=== PATIENT | female | born 1955 | race African-American/Black ===

== ENCOUNTER 2018-09-12 20:14 | Emergency (ER) | payer SELFPAY ==
[~2018-09-12] VITALS: Ht 160 cm; Wt 87.9 kg
[2018-09-12 20:20] VITALS: Ht 160 cm; Wt 87.9 kg
== END 2018-09-12 22:49 | disposition left against medical advice (07) ==
LOC: E/R 20:14
DX: Z53.21 Procedure and treatment not carried out due to patient leaving prior to being seen by health care provider (principal)

== ENCOUNTER 2018-09-28 18:37 | Inpatient (IN) | payer MEDICARE, MEDICAID ==
[~2018-09-28] VITALS: Ht 160 cm; Wt 85.1 kg
[2018-09-28] MEDS ORDERED: morphine 4 MG/ML VIAL IV STA (20:33)
[2018-09-28] MEDS ORDERED: SOD CHLORIDE 0.9% 1,000 ML IV STA (20:33)
[2018-09-28] MEDS ORDERED: ONDANSETRON 4 MG INJ IV STA (20:33)
--- NOTE | 2018-09-28 20:39 | ERD ---
ER Documentation Chief Complaint Chief Complaint Pt reports vomiting, AP and back pain HPI This is a 63-year-old female who complains of feeling bad for 7 days. He has diffuse upper and lower back pain with loss of appetite and has not been eating much or drinking much. Denies cough denies dysuria. She also complains of diffuse mild abdominal pain off and on. She has vomited once that was nonbilious and nonbloody. No diarrhea. She has general malaise and weakness. ROS All systems reviewed and are negative except as per history of present illness. Medications Home Meds Reported Medications Meloxicam* (Mobic*) 15 Mg Tablet, 15 MG PO DAILY, #30 TAB 09/28/18 Cyclobenzaprine Hcl* (Cyclobenzaprine Hcl*) 5 Mg Tablet, 5 MG PO DAILY, #60 TAB 09/28/18 Lisinopril* (Lisinopril*) 10 Mg Tablet, 10 MG PO DAILY, #30 TAB 09/28/18 Metformin Hcl* (Metformin Hcl*) 500 Mg Tablet, 500 MG PO WITH BREAKFAST DINNE, #60 TAB 09/28/18 Losartan Potassium* (Losartan Potassium*) 100 Mg Tablet, 100 MG PO DAILY, TAB 09/28/18 Montelukast Sodium* (Montelukast Sodium*) 10 Mg Tablet, 10 MG PO QHS, #30 TAB 09/28/18 Ipratropium-Albuterol (Ipratropium-Albuterol) 0.5-3 Mg/3 Ml Ampul.neb, 3 ML INHALATION Q6, #30 VIAL 09/28/18 Albuterol Sulfate* (Albuterol Sulfate* Neb) 0.083%-3 Ml Neb, 2.5 MG NEB TID PRN for WHEEZING AND SOB, #30 VIAL 09/28/18 Fluticasone Furoate (Arnuity Ellipta) 200 Mcg Blst.w.dev, 200 MCG INHALATION BID , #1 INHALER 09/28/18 Albuterol Sulfate (Proair Respiclick) 90 Mcg Aer.pow.ba, 2 PUFFS INHALATION QID, BOTTLE 09/28/18 Allergies Allergies: Coded Allergies: Penicillins (Unverified Allergy, Unknown, 09/28/18) aspirin (Verified Allergy, Unknown, 09/28/18) iodine (Verified Allergy, Unknown, 09/28/18) Uncoded Allergies: SEAFOOD (Allergy, Unknown, 09/28/18) PMhx/Soc History of Surgery: Yes (Hysterectomy) Anesthesia Reaction: No Hx Neurological Disorder: No Hx Respiratory Disorders: Yes (Asthma) Hx Psychiatric Problems: No Hx Miscellaneous Medical Probl: Yes (DM) Hx Alcohol Use: No Hx Substance Use: No Hx Tobacco Use: No Smoking Status: Never smoker FmHx Family History: No coronary disease Physical Exam Vitals Vital Signs Date Temp Pulse Resp B/P (MAP) Pulse Ox O2 O2 Flow FiO2 Time Delivery Rate 09/28/18 98.5 86 14 146/81 100 Room Air 23:22 (102) 09/28/18 98.5 91 14 142/73 100 Room Air 22:00 (96) 09/28/18 116 25 162/86 100 Room Air 20:32 (111) 09/28/18 99.1 118 20 189/83 100 18:40 (118) Physical Exam Const: Well-developed, well-nourished Head: Atraumatic, normocephalic Eyes: Normal Conjunctiva, PERRLA, EOMI, normal sclera, no nystagmus ENT: Normal External Ears, Nose and Mouth, moist mucus membranes. Neck: Full range of motion. No meningismus, no lymphadenopathy. Resp: Clear to auscultation bilaterally, no wheezing, rhonchi, rales Cardio: Regular rate and rhythm, no murmurs, S1 S2 present Abd: Soft, mild diffuse abdominal tenderness, non distended. Normal bowel sounds, no guarding or rebound, no pulsitile abdominal masses or bruits Skin: No petechiae or rashes, no ecchymosis , no maculopapular rash Back: No midline or flank tenderness Ext: No cyanosis, or edema, FROM x 4, normal inspection, neurovascularly intact x 4 Neur: Awake and alert, STR 5/5 x 4, sensation intact x 4, no focal findings, cerebellum intact Psych: Normal Mood and Affect Result Diagram: 09/28/18205409/28/182120 Results 24 hrs Laboratory Tests Test 09/28/18 20:55 09/28/18 21:21 09/28/18 21:50 White Blood Count 13.0 10^3/ul Red Blood Count 3.71 10^6/ul Hemoglobin 10.8 g/dl Hematocrit 33.2 % Mean Corpuscular Volume 89.5 fl Mean Corpuscular Hemoglobin 29.1 pg Mean Corpuscular 32.5 g/dl Hemoglobin Concent Red Cell Distribution Width 12.5 % Platelet Count 427 10^3/UL Mean Platelet Volume 8.5 fl Immature Granulocytes % 0.500 % Neutrophils % 75.7 % Lymphocytes % 15.4 % Monocytes % 6.2 % Eosinophils % 1.8 % Basophils % 0.4 % Nucleated Red Blood Cells % 0.0 /100WBC Immature Granulocytes # 0.060 10^3/ul Neutrophils # 9.9 10^3/ul Lymphocytes # 2.0 10^3/ul Monocytes # 0.8 10^3/ul Eosinophils # 0.2 10^3/ul Basophils # 0.1 10^3/ul Nucleated Red Blood Cells # 0.0 10^3/ul Sodium Level 133 mmol/L Potassium Level 4.5 mmol/L Chloride Level 98 mmol/L Carbon Dioxide Level 25 mmol/L Anion Gap 10 Blood Urea Nitrogen 15 mg/dl Creatinine 1.22 mg/dl Est Glomerular Filtrat 54 mL/min Rate mL/min Glucose Level 121 mg/dl Calcium Level 9.7 mg/dl Total Bilirubin 0.0 mg/dl Direct Bilirubin 0.00 mg/dl Indirect Bilirubin 0.0 mg/dl Aspartate Amino 17 IU/L Transf (AST/SGOT) Alanine 13 IU/L Aminotransferase (ALT/SGPT) Alkaline Phosphatase 69 IU/L Troponin I < 0.012 ng/ml Total Protein 6.8 g/dl Albumin 3.7 g/dl Globulin 3.10 g/dl Albumin/Globulin Ratio 1.19 Lipase 65 U/L Urine Color YELLOW Urine Clarity CLEAR Urine pH 7.0 Urine Specific [place] 1.009 Urine Ketones TRACE mg/dL Urine Nitrite NEGATIVE mg/dL Urine Bilirubin NEGATIVE mg/dL Urine Urobilinogen NEGATIVE mg/dL Urine Leukocyte Esterase NEGATIVE Rosamaria/ul Urine Hemoglobin NEGATIVE mg/dL Urine Glucose NEGATIVE mg/dL Urine Total Protein NEGATIVE mg/dl Current Medications Medications Dose Sig/Glen Start Time Status Last (Trade) Ordered Route PRN Stop Time Admin Dose Reason Admin Sodium 1,000 ml @ Q1H STAT 09/28/18 DC 09/28/18 Chloride 1,000 mls/hr IV 20:33 20:59 09/28/18 21:32 Morphine 4 mg ONCE STAT 09/28/18 DC 09/28/18 Sulfate IV 20:33 21:00 (morphine) 09/28/18 20:34 Ondansetron 4 mg ONCE STAT 09/28/18 DC 09/28/18 HCl (Zofran IV 20:33 21:00 Inj) 09/28/18 20:34 IV Flush 10 ml STK-MED 09/28/18 DC (NS 10 ml) ONCE .ROUTE 22:23 09/28/18 22:24 Sodium 0 ml @ ud STK-MED 09/28/18 DC Chloride ONCE .ROUTE 22:23 09/28/18 22:24 Iodixanol 100 ml STK-MED 09/28/18 DC (Visipaque ONCE .ROUTE 22:23 Locm) 09/28/18 22:24 Procedures/MDM Ordering MD: ARCENIO LEÓN DO Location: E/R Room/Bed: PROCEDURE: XR Chest. CLINICAL INDICATION: Abdominal pain TECHNIQUE: Frontal chest x-ray was obtained. COMPARISON: None. FINDINGS: The heart is not enlarged. Mediastinum is not widened. No hilar masses seen. Lungs are clear of any infiltrates. There is no effusion or pneumothorax. The osseous structures appear normal. IMPRESSION: No evidence for active cardiopulmonary disease. .Alonso Tang MD, MD Date Time Electronically viewed and signed by .Alonso Tang MD, MD on 09/28/2018 20:51 .A/ CC: ARCENIO LEÓN DO [id number] Ordering MD: ARCENIO LEÓN DO Location: E/R Room/Bed: PROCEDURE: CT ABDOMEN AND PELVIS WITHOUT CONTRAST. CLINICAL INDICATION: Abdominal pain TECHNIQUE: CT scan of the abdomen and pelvis without contrast was performed on a multidetector high-resolution CT scanner. The patient was scanned without intravenous contrast. Coronal and sagittal reformatted images were obtained from the axial source images. Images were reviewed on a high-resolution PACS workstation. The total exam CTDI equals 16.6 mGy and the total exam DLP equals 946.3 mGy-cm. One or more of the following dose reduction techniques were used: Automated exposure control. Adjustment of the mA and/or kV according to patient size. Use of iterative reconstruction technique. DICOM images are available COMPARISON: None FINDINGS: CT abdomen: The lung bases are clear. The heart size is within normal limits. There is no significant pericardial effusion. Hepatic morphology is within normal limits. No gross contour deforming masses. The gallbladder is distended. No evidence of intrahepatic or extrahepatic biliary dilatation. The spleen is unremarkable. There is inflammatory changes adjacent to the head of the pancreas as well as several lymph nodes adjacent to the stomach and head of the pancreas. There is distinct appearance of the head of the pancreas. Both adrenal glands are within normal limits. Both kidneys are in anatomic position. There are bilateral parapelvic renal cysts. No gross renal/ureteric calculi or obstructive uropathy. The visualized GI tract demonstrates distension of the stomach. There is marked abnormal appearance of the pylorus of the stomach and proximal duodenum overlying soft tissue density. There is a focal air-fluid level measuring 3.1 cm in this location, which may represent ulceration or diverticulum. Underlying malignancy is not excluded. The aorta demonstrates atherosclerotic calcifications. No significant retroperitoneal lymphadenopathy. CT pelvis: The bladder is within normal limits. The rectosigmoid colon demonstrates stool and diverticulosis. The uterus is atrophic. No significant free fluid. No significant pelvic lymphadenopathy. The visualized osseous structures demonstrate multilevel degenerative disease of the spine. IMPRESSION: 1. THERE IS A SOFT TISSUE DENSITY OVERLYING THE PYLORUS, PROXIMAL DUODENUM AND HEAD OF THE PANCREAS. THERE IS ALSO MILD DISTENSION OF THE STOMACH, WORRISOME FOR AT LEAST PARTIAL GASTRIC OUTLET OBSTRUCTION. THERE IS ALSO A 3.1 CM FOCAL AIR FLUID LEVEL IN THIS LOCATION, WHICH MAY REPRESENT ULCERATION OR DIVERTICULUM. SEVERAL LYMPH NODES ARE NOTED ADJACENT TO THE DISTAL STOMACH AND HEAD OF THE PANCREAS AND THERE IS INDISTINCT APPEARANCE OF THE PANCREAS. ALTHOUGH FINDINGS MAY REPRESENT UNDERLYING SEVERE INFLAMMATION OF EITHER THE DISTAL STOMACH OR PANCREAS, UNDERLYING MALIGNANCY IS NOT EXCLUDED. RECOMMEND FURTHER WORKUP WITH FOLLOW-UP CT SCAN WITH IV AND IMMEDIATE ORAL GASTROGRAPHIN CONTRAST. EVENTUAL FOLLOW-UP UPPER GI ENDOSCOPY WITH IS ALSO RECOMMENDED. 2. Mildly distended gallbladder. Cannot exclude underlying inflammation. Recommend correlation with ultrasound. No gross radiopaque gallstones. 3. No evidence of bowel obstruction. Stool filled loops of large bowel sugge stive of constipation. The appendix is within normal limits. 4. Bilateral parapelvic renal cysts. No evidence of obstruction or hydronephrosis. 5. No evidence of free fluid or free air. No gross focal fluid collections. RPTAT: AAPP Physician Carmen Date Time Electronically viewed and signed by Harmeet Gallagher Physician on 09/28/2018 23:11 JL/ CC: ARCENIO LEÓN DO [id number] Patient likely has a intra-abdominal mass likely from the pancreatic head. Causing some type of partial gastric outlet obstruction. Will need to get some further studies done and get evaluated with CT scan with oral contrast and EGD We will get ultrasound to assess further now Departure Diagnosis: Primary Impression: Gastric outlet obstruction Additional Impression: Mass of pancreas Condition: Stable ARCENIO LEÓN DO Sep 28, 2018 20:39
[2018-09-28] MEDS ORDERED: ALBU90AE INHALATION (21:31)
[2018-09-28] MEDS ORDERED: FLUT200B INHALATION (21:31)
[2018-09-28] MEDS ORDERED: ALBU2.5V3 NEB (21:32)
[2018-09-28] MEDS ORDERED: MONT10TA24 PO (21:33)
[2018-09-28] MEDS ORDERED: IPRA3AMP29 INHALATION (21:33)
[2018-09-28] MEDS ORDERED: METF500T24 PO (21:34)
[2018-09-28] MEDS ORDERED: LOSA100T15 PO (21:34)
[2018-09-28] MEDS ORDERED: LISI10TA2 PO (21:35)
[2018-09-28] MEDS ORDERED: MELO15TA30 PO (21:36)
[2018-09-28] MEDS ORDERED: CYCL5TAB PO (21:36)
[2018-09-28] MEDS ORDERED: IODIXANOL LOCM 100 ML BTL ONE (22:23)
[2018-09-28] MEDS ORDERED: SOD CHLORIDE 0.9% 0 ML ONE (22:23)
[2018-09-29] MEDS ORDERED: SOD CHLORIDE 0.9% 1,000 ML IV SCH (00:26)
[2018-09-29] MEDS ORDERED: ONDANSETRON 4 MG INJ IV PRN ×2 (00:30→01:00)
[2018-09-29] MEDS ORDERED: ACETAMINOPHEN 325 MG TAB PO PRN ×2 (00:30→01:00)
[2018-09-29] MEDS ORDERED: DOCUSATE SODIUM 100 MG CAP PO PRN (01:00)
[2018-09-29] MEDS ORDERED: HEPARIN 5,000 UNIT/1 ML VIAL SC SCH (01:00)
[2018-09-29] MEDS ORDERED: BISACODYL (EC) 5 MG TAB PO PRN (01:00)
[2018-09-29] MEDS ORDERED: morphine 2 MG INJ IV PRN (01:00)
[2018-09-29] MEDS ORDERED: IOHEXOL 14.3 MG(I)/ML (ADULT) BTL PO ONE (01:00)
[2018-09-29] MEDS ORDERED: NACL 0.9% 3 ML SYG IV SCH (01:00)
--- NOTE | 2018-09-29 01:06 | HP ---
Date/Time of Note Date/Time of Note DATE: 09/29/18 TIME: 01:06 Assessment/Plan VTE Prophylaxis SCD applied (from Nsg): Yes Pharmacological prophylaxis: heparin Lines/Catheters IV Catheter Type (from Nrsg): Saline Lock Assessment/Plan Hospital Course This is a 63-year-old female being admitted to the [facility] floor for: #1 abdominal pain: Concern for gastric outlet obstruction versus underlying mass versus other: CT the abdomen pelvis 1. THERE IS A SOFT TISSUE DENSITY OVERLYING THE PYLORUS, PROXIMAL DUODENUM AND HEAD OF THE PANCREAS. THERE IS ALSO MILD DISTENSION OF THE STOMACH, WORRISOME FOR AT LEAST PARTIAL GASTRIC OUTLET OBSTRUCTION. THERE IS ALSO A 3.1 CM FOCAL AIR FLUID LEVEL IN THIS LOCATION, WHICH MAY REPRESENT ULCERATION OR DIVERTICULUM. SEVERAL LYMPH NODES ARE NOTED ADJACENT TO THE DISTAL STOMACH AND HEAD OF THE PANCREAS AND THERE IS INDISTINCT APPEARANCE OF THE PANCREAS. ALTHOUGH FINDINGS MAY REPRESENT UNDERLYING SEVERE INFLAMMATION OF EITHER THE DISTAL STOMACH OR PANCREAS, UNDERLYING MALIGNANCY IS NOT EXCLUDED. RECOMMEND FURTHER WORKUP WITH FOLLOW-UP CT SCAN WITH IV AND IMMEDIATE ORAL GASTROGRAPHIN CONTRAST. EVENTUAL FOLLOW-UP UPPER GI ENDOSCOPY WITH IS ALSO RECOMMENDED. As patient is allergic to iodine we will be able to pursue a CT contrast imaging study. MRI of the abdomen is an option. We will defer to general surgery Dr. York and GI Dr. man in regards to best modality for imaging. At the current time we will keep the patient n.p.o. IV fluid hydration with normal koko ine. Patient is currently in no pain. Will provide as needed morphine as needed. #2 Leukocytosis: Possibly reactive, patient is afebrile and does not of any source of infection at the current time. Continue to monitor closely 3. Acute versus acute on chronic kidney injury: Patient has a creatinine of 1.2. Likely prerenal given patient's history of vomiting as well as poor appetite. Will hydrate the patient at the current time a normal saline. Will monitor urine function closely. Avoid nephrotoxic agents. #4 hyponatremia: Patient has a mild hyponatremia of 133, she has had poor p.o. intake and decreased fluid intake. Hydrate the patient at the current time monitor electrolytes. #5 diabetes mellitus: We will check hemoglobin A1c, hold home oral medications #6 hypertension: Patient appears to have an UMA inhibitor as well as an ARB, we will need to confirm whether patient is in fact taking both these medications. We will put the patient on as needed hydralazine at the current time. #7 DVT GI prophylaxis: SCDs, no GI prophylaxis indicated Further treatment strategy will be implemented as per the clinical course Result Diagram: 09/28/18205409/28/182120 Results 24hrs Laboratory Tests Test 09/28/18 20:55 09/28/18 21:21 09/28/18 21:50 White Blood Count 13.0 H Red Blood Count 3.71 L Hemoglobin 10.8 L Hematocrit 33.2 L Mean Corpuscular Volume 89.5 Mean Corpuscular Hemoglobin 29.1 Mean Corpuscular Hemoglobin Concent 32.5 Red Cell Distribution Width 12.5 Platelet Count 427 H Mean Platelet Volume 8.5 Immature Granulocytes % 0.500 H Neutrophils % 75.7 Lymphocytes % 15.4 Monocytes % 6.2 Eosinophils % 1.8 Basophils % 0.4 Nucleated Red Blood Cells % 0.0 Immature Granulocytes # 0.060 H Neutrophils # 9.9 H Lymphocytes # 2.0 Monocytes # 0.8 Eosinophils # 0.2 Basophils # 0.1 Nucleated Red Blood Cells # 0.0 Sodium Level 133 L Potassium Level 4.5 Chloride Level 98 Carbon Dioxide Level 25 Anion Gap 10 Blood Urea Nitrogen 15 Creatinine 1.22 H Est Glomerular Filtrat Rate mL/min 54 L Glucose Level 121 Calcium Level 9.7 Total Bilirubin 0.0 L Direct Bilirubin 0.00 Indirect Bilirubin 0.0 Aspartate Amino Transf (AST/SGOT) 17 Alanine Aminotransferase (ALT/SGPT) 13 Alkaline Phosphatase 69 Troponin I < 0.012 Total Protein 6.8 Albumin 3.7 Globulin 3.10 Albumin/Globulin Ratio 1.19 Lipase 65 Urine Color YELLOW Urine Clarity CLEAR Urine pH 7.0 Urine Specific [place] 1.009 Urine Ketones TRACE A Urine Nitrite NEGATIVE Urine Bilirubin NEGATIVE Urine Urobilinogen NEGATIVE Urine Leukocyte Esterase NEGATIVE Urine Hemoglobin NEGATIVE Urine Glucose NEGATIVE Urine Total Protein NEGATIVE HPI/ROS Admit Date/Time Admit Date/Time Hx of Present Illness Chief complaint: Abdominal pain times 1 week, vomiting since yesterday This is a 63-year-old female who complains of feeling bad for 7 days. SHe has diffuse upper and lower back pain with loss of appetite and has not been eating much or drinking much. Denies cough denies dysuria. She also complains of diffuse mild abdominal pain off and on. She has vomited once that was nonbilious and nonbloody. She has had decreased appetite and because of that she has not had a bowel movement in the last 3 days. She has general malaise and weakness. She denies any weight loss. Allergies: Penicillin, seafood, aspirin, iodine, bees, wasps Medications: See TIAN BERGMAN Const: As per HPI Eyes : No pain discharge or redness or change in visual acuity ENT: No pain, sore throat, congestion, congestion, dysphagia or discharge Respiratory: No shortness of breath, cough, sputum, wheezing, or pleuritic pain Cardiovascular: No chest pain, palpitation, PND, or edema GI : As per HPI Genitourinary: No dysuria, hematuria, flank pain , discharge or CVA tenderness Musculoskeletal: No joint pain, back pain, neck pain, restricted range of motion in neck or joints Skin: No rash, bruising or hives Neuro: No headache, dizziness, syncope, seizure, focal weakness Endocrine: No polyuria, polydipsia, temperature intolerance Psych: No hallucination, depression, anxiety or suicidal ideation PMH/Family/Social Past Medical History Diabetes mellitus, hypertension, asthma Medications Current Medications Sodium Chloride 1,000 ml @ 80 mls/hr [id number] IV ; Start 09/29/18 at 00:26; Stop 09/29/18 at 12:55 Ondansetron HCl (Zofran Inj) 4 mg BRIDGE ORDER PRN IV NAUSEA/VOMITING; Start 09/29/18 at 00:30; Stop 09/30/18 at 00:29 Acetaminophen (Tylenol Tab) 650 mg ER BRIDGE PRN PO .MILD PAIN 1-3 OR TEMP; Start 09/29/18 at 00:30; Stop 09/30/18 at 00:29 Sodium Chloride 1,000 ml @ 75 mls/hr [id number] IV ; Start 09/29/18 at 00:41 IV Flush (NS 3 ml) 3 ml PER PROTOCOL IV ; Start 09/29/18 at 01:00 Ondansetron HCl (Zofran Inj) 4 mg Q6H PRN IV NAUSEA/VOMITING; Start 09/29/18 at 01:00 Acetaminophen (Tylenol Tab) 650 mg Q6H PRN PO .PAIN 1-3 OR TEMP; Start 09/29/18 at 01:00 Morphine Sulfate (morphine) 2 mg Q4H PRN IV .SEVERE PAIN 7-10; Start 09/29/18 at 01:00 Docusate Sodium (Colace) 100 mg Q12H PRN PO .CONSTIPATION; Start 09/29/18 at 01:00 Bisacodyl (Dulcolax) 5 mg DAILY PRN PO .CONSTIPATION; Start 09/29/18 at 01:00 Heparin Sodium (Porcine) (Heparin (5000 Units/1ml)) 5,000 unit Q8H SC ; Start 09/29/18 at 01:00 Coded Allergies: Penicillins (Unverified Allergy, Unknown, 09/28/18) aspirin (Verified Allergy, Unknown, 09/28/18) iodine (Verified Allergy, Unknown, 09/28/18) Uncoded Allergies: SEAFOOD (Allergy, Unknown, 09/28/18) Past Surgical History Hysterectomy Family History Significant Family History: no pertinent family hx Social History Alcohol Use: none Smoking Status: Never smoker Drug Use: none Exam/Review of Systems Vital Signs Vitals Vital Signs Date Temp Pulse Resp B/P (MAP) Pulse Ox O2 O2 Flow FiO2 Time Delivery Rate 09/29/18 97.9 94 15 130/72 100 Room Air 00:56 (91) Exam Exam General: Patient is a pleasant female currently lying in bed in no acute distress HEENT: Atraumatic, normocephalic. The pupils are equal, round and reactive. Extraocular motor are intact Neck: Supple with full range of motion. No rigidity or meningismus Chest: Nontender Lungs: Clear to auscultation bilaterally no crackles rales or wheezing Heart: Normal S1-S2, Regular rhythm and rate. Abdomen: Obese, soft, nontender to palpation, hypoactive bowel sounds, no CVA tenderness palpation bilaterally Extremities: Normal to inspection, no edema no cyanosis Neurologic: Normal mental status, speech normal, cranial nerves II through XII are intact, motor and sensory are intact, Additional Comments PROCEDURE: CT ABDOMEN AND PELVIS WITHOUT CONTRAST. CLINICAL INDICATION: Abdominal pain TECHNIQUE: CT scan of the abdomen and pelvis without contrast was performed on a multidetector high-resolution CT scanner. The patient was scanned without intravenous contrast. Coronal and sagittal reformatted images were obtained from the axial source images. Images were reviewed on a high-resolution PACS workstation. The total exam CTDI equals 16.6 mGy and the total exam DLP equals 946.3 mGy-cm. One or more of the following dose reduction techniques were used: Automated exposure control. Adjustment of the mA and/or kV according to patient size. Use of iterative reconstruction technique. DICOM images are available COMPARISON: None FINDINGS: CT abdomen: The lung bases are clear. The heart size is within normal limits. There is no significant pericardial effusion. Hepatic morphology is within normal limits. No gross contour deforming masses. The gallbladder is distended. No evidence of intrahepatic or extrahepatic biliary dilatation. The spleen is unremarkable. There is inflammatory changes adjacent to the head of the pancreas as well as several lymph nodes adjacent to the stomach and head of the pancreas. There is distinct appearance of the head of the pancreas. Both adrenal glands are within normal limits. Both kidneys are in anatomic position. There are bilateral parapelvic renal cysts. No gross renal/ureteric calculi or obstructive uropathy. The visualized GI tract demonstrates distension of the stomach. There is marked abnormal appearance of the pylorus of the stomach and proximal duodenum overlying soft tissue density. There is a focal air-fluid level measuring 3.1 cm in this location, which may represent ulceration or diverticulum. Underlying malignancy is not excluded. The aorta demonstrates atherosclerotic calcifications. No significant retroperitoneal lymphadenopathy. CT pelvis: The bladder is within normal limits. The rectosigmoid colon demonstrates stool and diverticulosis. The uterus is atrophic. No significant free fluid. No significant pelvic lymphadenopathy. The visualized osseous structures demonstrate multilevel degenerative disease of the spine. IMPRESSION: 1. THERE IS A SOFT TISSUE DENSITY OVERLYING THE PYLORUS, PROXIMAL DUODENUM AND HEAD OF THE PANCREAS. THERE IS ALSO MILD DISTENSION OF THE STOMACH, WORRISOME FOR AT LEAST PARTIAL GASTRIC OUTLET OBSTRUCTION. THERE IS ALSO A 3.1 CM FOCAL AIR FLUID LEVEL IN THIS LOCATION, WHICH MAY REPRESENT ULCERATION OR DIVERTICULUM. SEVERAL LYMPH NODES ARE NOTED ADJACENT TO THE DISTAL STOMACH AND HEAD OF THE PANCREAS AND THERE IS INDISTINCT APPEARANCE OF THE PANCREAS. ALTHOUGH FINDINGS MAY REPRESENT UNDERLYING SEVERE INFLAMMATION OF EITHER THE DISTAL STOMACH OR PANCREAS, UNDERLYING MALIGNANCY IS NOT EXCLUDED. RECOMMEND FURTHER WORKUP WITH FOLLOW-UP CT SCAN WITH IV AND IMMEDIATE ORAL GASTROGRAPHIN CONTRAST. EVENTUAL FOLLOW-UP UPPER GI ENDOSCOPY WITH IS ALSO RECOMMENDED. 2. Mildly distended gallbladder. Cannot exclude underlying inflammation. Recommend correlation with ultrasound. No gross radiopaque gallstones. 3. No evidence of bowel obstruction. Stool filled loops of large bowel suggestive of constipation. The appendix is within normal limits. 4. Bilateral parapelvic renal cysts. No evidence of obstruction or hydronephros is. 5. No evidence of free fluid or free air. No gross focal fluid collections. RPTAT: AAPP Physician Carmen Date Time Electronically viewed and signed by Physician Carmen on 09/28/2018 23:11 JL/ CC: ARCENIO LEÓN DO [id number] PROCEDURE: XR Chest. CLINICAL INDICATION: Abdominal pain TECHNIQUE: Frontal chest x-ray was obtained. COMPARISON: None. FINDINGS: The heart is not enlarged. Mediastinum is not widened. No hilar masses seen. Lungs are clear of any infiltrates. There is no effusion or pneumothorax. The osseous structures appear normal. IMPRESSION: No evidence for active cardiopulmonary disease. .Alonso Tang MD, MD Date Time Electronically viewed and signed by .Alonso Tang MD, on 09/28/2018 20:51 .A/ CC: ARCENIO LEÓN DO [id number] PROCEDURE: US Abdomen. CLINICAL INDICATION: Pain. TECHNIQUE: Multiple real-time images were acquired of the patient's abdomen and retroperitoneum utilizing a high resolution transducer. COMPARISON: CT abdomen pelvis from 09/28/2018 FINDINGS: Liver: The echotexture is homogeneous. No focal lesion. The main portal vein is patent and demonstrates hepato pedal flow. Biliary: The gallbladder is normal. No stones are identified within the gallbladder. There is no pericholecystic fluid or gallbladder wall thickening. Sonographic Smith sign is negative. No biliary dilitation. The common duct measures 4 mm in diameter. Pancreas: Overlying bowel gas obscures the pancreas which is poorly evaluated. Kidneys: The right kidney is normal in size and demonstrates normal echogenicity and cortical thickness. The right kidney measures 9.1 cm in length. There is no hydronephrosis, renal mass or stone. Other: No free fluid is identified. IMPRESSION: Normal appearance of the gallbladder. No evidence of cholelithiasis. Suboptimal imaging of the pancreas due to overlying bowel gas. RPTAT: HEUY beck chowdhury Physician Date Time Electronically viewed and signed by beck chowdhury Physician on 09/29/2018 01:14 ry/ CC: ARCENIO LEÓN DO [id number] ARLIN CHARLTON Sep 29, 2018 01:06
--- NOTE | 2018-09-29 03:55 | NUR ---
Patient arrived in 4W from PACU with diagnosis of pancreatic head mass; oriented to room/unit, call farah placed within reach and side railsx2 raised for safety. Able to clarify with ED RN Pat gastrografin was not given for ordered CT scan procedure due to patient's allergy to iodine/contrast, Heparin injection was not also given in the ED. Latter asked RN to administer med in 4W. Also clarified with Dr. Sims re: Accu-check orders as well as home meds reconciliation while patient is ordered to be NPO with med exceptions. Orders made accordingly but as per MD, no Accu-checks indicated for patient at this time. Physician made aware patient reported she is borderline diabetic but blood sugar has been in control and well managed from home with use of Metformin PO meds with meals prior to admission. Needs assisted, will continue to monitor for the remainder of this shift.
[2018-09-29] MEDS ORDERED: ALBUTEROL/IPRATROPIUM (NEB) 3 ML AMP INH PRN (04:00)
[2018-09-29] MEDS ORDERED: ALBUTEROL 0.083% (NEB) 2.5 MG/3 ML AMP NEB PRN (04:00)
[2018-09-29] MEDS: SOD CHLORIDE 0.9% 1,000 ML IV SCH ×2 (04:03→18:06)
[2018-09-29] MEDS ORDERED: VITAMIN A & D 5 GM OINT PACKET TOP ONE (04:21)
[2018-09-29 05:00] VITALS: BP 148/73; PULSE 98; RESP 20
[2018-09-29 05:07] VITALS: Ht 160 cm; Wt 85.1 kg
--- NOTE | 2018-09-29 06:00 | NUR ---
RN EOSS NOTES: Patient asleep at this time, easily awakened-denies any pain at the moment. Consented to nursing staff bringing her non-formulary Arnuity inhaler to pharmacy for identification. As per pharmacy staff, med will be delivered back to 4W for patient prior to shift change. Patient insists to have it available at her bedside-not comfortable for med to be placed in [facility] since inhaler is very expensive. Will follow-up again with pharmacy staff, if not delivered by shift change will endorse to incoming day RN for retrieval.
[2018-09-29 08:24] VITALS: BP 105/58; PULSE 88; RESP 18
[2018-09-29] MEDS: ARNUITY ELLIPTA XX SCH ×2 (09:19→20:41)
[2018-09-29] MEDS: CYCLOBENZAPRINE 10 MG TAB PO SCH (09:24)
--- NOTE | 2018-09-29 13:14 | CONS ---
Assessment/Plan Assessment/Plan Assessment/Plan (Daily) Assessment: Partial gastric outlet obstruction Inflammation versus mass of the pancreatic head on CT Vomiting -resolved Leukocytosis Acute kidney injury -elevated creatinine Diabetes mellitus Hypertension Plan: Recommend EGD -patient is refusing MRI has been ordered Follow-up on imaging results She is seen in collaboration with Consultation Date/Type/Reason Admit Date/Time Date of Consultation: Sep 29, 2018 Type of Consult GI Reason for Consultation GOO Date/Time of Note DATE: 09/29/18 TIME: 13:03 Hx of Present Illness This is a 63-year-old female with a history of diabetes and hypertension who was admitted for epigastric pain and one episode of nonbloody vomiting. On CT scan without contrast she was found to have partial gastric outlet obstruction and inflammation around the pancreatic head. Further imaging was recommended. Patient notably has elevated creatinine and white blood count. MRI has been ordered. Discussed the plan for EGD with the patient. She is refusing the procedure since she is currently asymptomatic. She wants to proceed with MRI and advance the diet as previously discussed with the doctor she saw earlier. I explained the need for EGD for direct visualization and biopsies to diagnose and treat her efficiently however patient states "she does not believe and endoscopic procedures". Currently patient denies fever, hematemesis, vomiting, hematochezia, constipation or diarrhea. We will follow-up on results of MRI. Gastrointestinal: no complaints (See HPI) Past Medical History Medical History: diabetes, hypertension Home Meds Reported Medications Meloxicam* (Mobic*) 15 Mg Tablet, 15 MG PO DAILY, #30 TAB 09/28/18 Cyclobenzaprine Hcl* (Cyclobenzaprine Hcl*) 5 Mg Tablet, 5 MG PO DAILY, #60 TAB 09/28/18 Lisinopril* (Lisinopril*) 10 Mg Tablet, 10 MG PO DAILY, #30 TAB 09/28/18 Metformin Hcl* (Metformin Hcl*) 500 Mg Tablet, 500 MG PO WITH BREAKFAST DINNE, #60 TAB 09/28/18 Losartan Potassium* (Losartan Potassium*) 100 Mg Tablet, 100 MG PO DAILY, TAB 09/28/18 Montelukast Sodium* (Montelukast Sodium*) 10 Mg Tablet, 10 MG PO QHS, #30 TAB 09/28/18 Ipratropium-Albuterol (Ipratropium-Albuterol) 0.5-3 Mg/3 Ml Ampul.neb, 3 ML INHALATION Q6, #30 VIAL 09/28/18 Albuterol Sulfate* (Albuterol Sulfate* Neb) 0.083%-3 Ml Neb, 2.5 MG NEB TID PRN for WHEEZING AND SOB, #30 VIAL 09/28/18 Fluticasone Furoate (Arnuity Ellipta) 200 Mcg Blst.w.dev, 200 MCG INHALATION BID , #1 INHALER 09/28/18 Albuterol Sulfate (Proair Respiclick) 90 Mcg Aer.pow.ba, 2 PUFFS INHALATION QID, BOTTLE 09/28/18 Medications Current Medications Sodium Chloride 1,000 ml @ 75 mls/hr [id number] IV Last administered on 09/29/18at 04:03; Admin Dose 75 MLS/HR; Start 09/29/18 at 00:41 IV Flush (NS 3 ml) 3 ml PER PROTOCOL IV ; Start 09/29/18 at 01:00 Ondansetron HCl (Zofran Inj) 4 mg Q6H PRN IV NAUSEA/VOMITING; Start 09/29/18 at 01:00 Acetaminophen (Tylenol Tab) 650 mg Q6H PRN PO .PAIN 1-3 OR TEMP; Start 09/29/18 at 01:00 Morphine Sulfate (morphine) 2 mg Q4H PRN IV .SEVERE PAIN 7-10 Last administered on 09/29/18at 01:22; Admin Dose 2 MG; Start 09/29/18 at 01:00 Docusate Sodium (Colace) 100 mg Q12H PRN PO .CONSTIPATION; Start 09/29/18 at 01:00 Bisacodyl (Dulcolax) 5 mg DAILY PRN PO .CONSTIPATION; Start 09/29/18 at 01:00 Albuterol (Proventil 0.083% (Neb)) 2.5 mg TID RESP THERAPY PRN NEB WHEEZING AND SOB; Start 09/29/18 at 04:00 Cyclobenzaprine HCl (Flexeril) 5 mg DAILY PO Last administered on 09/29/18at 09:24; Admin Dose 5 MG; Start 09/29/18 at 09:00 Albuterol/ Ipratropium (Duoneb) 3 ml Q6H RESP THERAPY PRN INH SHORTNESS OF BREATH Last administered on 09/29/18at 05:44; Admin Dose 3 ML; Start 09/29/18 at 04:00 Montelukast Sodium (Singulair) 10 mg QHS PO ; Start 09/29/18 at 21:00 Patient Own Medication 1 INHALATION BID RESP THERAPY XX Last administered on 09/29/18at 09:19; Admin Dose 1 EA; Start 09/29/18 at 09:00 Heparin Sodium (Porcine) (Heparin (5000 Units/1ml)) 5,000 unit Q8 SC ; Start 09/29/18 at 14:00 Allergies: Coded Allergies: Penicillins (Unverified Allergy, Unknown, 09/28/18) aspirin (Verified Allergy, Unknown, 09/28/18) iodine (Verified Allergy, Unknown, 09/28/18) Uncoded Allergies: SEAFOOD (Allergy, Unknown, 09/28/18) Social History Alcohol Use: none Smoking Status: Never smoker Drug Use: none Exam/Review of Systems Exam Vitals Vital Signs Date Temp Pulse Resp B/P (MAP) Pulse Ox O2 O2 Flow FiO2 Time Delivery Rate 09/29/18 98.2 88 18 105/58 98 Room Air 08:24 (74) 09/29/18 21 05:45 Intake and Output 09/28/18 09/28/18 09/29/18 1515:00 23:00 07:00 IntakeIntake Total 75 ml BalanceBalance 75 ml PHYSICAL EXAMINATION: GENERAL: Well developed, obese, well nourished, alert & oriented x 3, in no acute distress SKIN: No lesions, no stigmata chronic liver disease, no evidence of bleeding diathesis LYMPHATIC: No palpable lymphadenopathy. HEAD: Normocephalic, atraumatic, no tenderness. EYES: Pupils equal reactive to light and accommodation, full extraocular movements, sclera clear, non-icteric, no discharge. EARS/NOSE AND THROAT: Ears normal, nose normal, oropharynx normal, oral membranes well hydrated without lesions. NECK: Supple, no masses, thyroid normal, JVP within normal limits, carotids normal without bruits. CHEST: Inspection within normal limits. CARDIOVASCULAR: Heart: Regular rate and rhythm, no murmurs, gallops or rubs. Peripheral pulses present within normal limits, no cyanosis, clubbing or edemas. No pulsatile abdominal mass RESPIRATORY: Lungs clear to auscultation and percussion, no wheezing, no rubs GASTROINTESTINAL AND LIVER: Abdomen: Soft, non tenderness, non-distended, no hernias, no masses, no organomegaly, no ascites, no guarding, no rebound tenderness, normoactive bowel sounds. Rectal: Deferred. GENITOURINARY: Female genitalia within normal limits. EXTREMITIES: No cyanosis, clubbing or edema. Results Result Diagram: 09/28/18205409/28/182120 Results 24hrs Laboratory Tests Test 09/28/18 20:55 09/28/18 21:12 09/28/18 21:21 09/28/18 21:50 White Blood Count 13.0 H Red Blood Count 3.71 L Hemoglobin 10.8 L Hematocrit 33.2 L Mean Corpuscular 89.5 Volume Mean Corpuscular 29.1 Hemoglobin Mean Corpuscular 32.5 Hemoglobin Concent Red Cell 12.5 Distribution Width Platelet Count 427 H Mean Platelet Volume 8.5 Immature 0.500 H Granulocytes % Neutrophils % 75.7 Lymphocytes % 15.4 Monocytes % 6.2 Eosinophils % 1.8 Basophils % 0.4 Nucleated Red Blood 0.0 Cells % Immature 0.060 H Granulocytes # Neutrophils # 9.9 H Lymphocytes # 2.0 Monocytes # 0.8 Eosinophils # 0.2 Basophils # 0.1 Nucleated Red Blood 0.0 Cells # Carcinoembryonic 1.2 Antigen CA 19-9 Antigen < 1.4 CA 125 Antigen 11.5 Sodium Level 133 L Potassium Level 4.5 Chloride Level 98 Carbon Dioxide Level 25 Anion Gap 10 Blood Urea Nitrogen 15 Creatinine 1.22 H Est Glomerular 54 L Filtrat Rate mL/min Glucose Level 121 Calcium Level 9.7 Total Bilirubin 0.0 L Direct Bilirubin 0.00 Indirect Bilirubin 0.0 Aspartate Amino 17 Transf (AST/SGOT) Alanine 13 Aminotransferase (AL T/SGPT) Alkaline Phosphatase 69 Troponin I < 0.012 Total Protein 6.8 Albumin 3.7 Globulin 3.10 Albumin/Globulin 1.19 Ratio Lipase 65 Urine Color YELLOW Urine Clarity CLEAR Urine pH 7.0 Urine Specific 1.009 [place] Urine Ketones TRACE A Urine Nitrite NEGATIVE Urine Bilirubin NEGATIVE Urine Urobilinogen NEGATIVE Urine Leukocyte NEGATIVE Esterase Urine Hemoglobin NEGATIVE Urine Glucose NEGATIVE Urine Total Protein NEGATIVE SAMUEL MORAN NP Sep 29, 2018 13:13
--- NOTE | 2018-09-29 14:10 | CONS ---
Assessment/Plan Assessment/Plan Assessment/Plan (Daily) The patient is a 63-year-old female who presents with back pain and an episode of vomiting. She was found to have an inflammatory versus neoplastic process of the duodenum and possibly head of the pancreas. Upper GI endoscopy was appropriately recommended. The patient refused because she states that she feels well. MRI has been ordered but at the time of this dictation has not yet been done. The patient and family are very upset that the MRI has not been done yet. They feel that the MRI will have all the answers. Furthermore they are hinging on something that one of the physicians told her today, and that is that she might be going home tomorrow; Further consolidating in the patient's mind that there is nothing really wrong with her. She indicates that God will let her know what to do. We will make the appropriate recommendations based on her workup. The patient will decide what she wishes to do Consultation Date/Type/Reason Admit Date/Time Date of Consultation: Sep 29, 2018 Type of Consult General surgery Reason for Consultation Inflammatory versus neoplastic mass of duodenum and possibly pancreas Date/Time of Note DATE: 09/29/18 TIME: 14:01 Hx of Present Illness The patient is a 63-year-old female who came into the emergency room yesterday because of back pain and vomiting. A CT scan showed findings compatible with inflammatory versus neoplastic process of the duodenum and head of the pancreas. She has been seen in GI consultation were EGD was appropriately recommended. The patient refused EGD for a variety of different personal reasons, and has agreed to MRI. Have been asked to see the patient in surgical consultation. The patient states that she is asymptomatic and believes there is nothing wrong. Constitutional: no complaints Eyes: no complaints ENT: no complaints Respiratory: no complaints Cardiovascular: no complaints Gastrointestinal: vomiting Musculoskeletal: back pain Past Medical History Medical History: diabetes, hypertension Home Meds Reported Medications Meloxicam* (Mobic*) 15 Mg Tablet, 15 MG PO DAILY, #30 TAB 09/28/18 Cyclobenzaprine Hcl* (Cyclobenzaprine Hcl*) 5 Mg Tablet, 5 MG PO DAILY, #60 TAB 09/28/18 Lisinopril* (Lisinopril*) 10 Mg Tablet, 10 MG PO DAILY, #30 TAB 09/28/18 Metformin Hcl* (Metformin Hcl*) 500 Mg Tablet, 500 MG PO WITH BREAKFAST DINNE, #60 TAB 09/28/18 Losartan Potassium* (Losartan Potassium*) 100 Mg Tablet, 100 MG PO DAILY, TAB 09/28/18 Montelukast Sodium* (Montelukast Sodium*) 10 Mg Tablet, 10 MG PO QHS, #30 TAB 09/28/18 Ipratropium-Albuterol (Ipratropium-Albuterol) 0.5-3 Mg/3 Ml Ampul.neb, 3 ML INHALATION Q6, #30 VIAL 09/28/18 Albuterol Sulfate* (Albuterol Sulfate* Neb) 0.083%-3 Ml Neb, 2.5 MG NEB TID PRN for WHEEZING AND SOB, #30 VIAL 09/28/18 Fluticasone Furoate (Arnuity Ellipta) 200 Mcg Blst.w.dev, 200 MCG INHALATION BID, #1 INHALER 09/28/18 Albuterol Sulfate (Proair Respiclick) 90 Mcg Aer.pow.ba, 2 PUFFS INHALATION QID, BOTTLE 09/28/18 Medications Current Medications Sodium Chloride 1,000 ml @ 75 mls/hr [id number] IV Last administered on 09/29/18at 04:03; Admin Dose 75 MLS/HR; Start 09/29/18 at 00:41 IV Flush (NS 3 ml) 3 ml PER PROTOCOL IV ; Start 09/29/18 at 01:00 Ondansetron HCl (Zofran Inj) 4 mg Q6H PRN IV NAUSEA/VOMITING; Start 09/29/18 at 01:00 Acetaminophen (Tylenol Tab) 650 mg Q6H PRN PO .PAIN 1-3 OR TEMP; Start 09/29/18 at 01:00 Morphine Sulfate (morphine) 2 mg Q4H PRN IV .SEVERE PAIN 7-10 Last administered on 09/29/18at 01:22; Admin Dose 2 MG; Start 09/29/18 at 01:00 Docusate Sodium (Colace) 100 mg Q12H PRN PO .CONSTIPATION; Start 09/29/18 at 01:00 Bisacodyl (Dulcolax) 5 mg DAILY PRN PO .CONSTIPATION; Start 09/29/18 at 01:00 Albuterol (Proventil 0.083% (Neb)) 2.5 mg TID RESP THERAPY PRN NEB WHEEZING AND SOB; Start 09/29/18 at 04:00 Cyclobenzaprine HCl (Flexeril) 5 mg DAILY PO Last administered on 09/29/18at 09:24; Admin Dose 5 MG; Start 09/29/18 at 09:00 Albuterol/ Ipratropium (Duoneb) 3 ml Q6H RESP THERAPY PRN INH SHORTNESS OF BREATH Last administered on 09/29/18at 05:44; Admin Dose 3 ML; Start 09/29/18 at 04:00 Montelukast Sodium (Singulair) 10 mg QHS PO ; Start 09/29/18 at 21:00 Patient Own Medication 1 INHALATION BID RESP THERAPY XX Last administered on 09/29/18at 09:19; Admin Dose 1 EA; Start 09/29/18 at 09:00 Heparin Sodium (Porcine) (Heparin (5000 Units/1ml)) 5,000 unit Q8 SC ; Start 09/29/18 at 14:00 Allergies: Coded Allergies: Penicillins (Unverified Allergy, Unknown, 09/28/18) aspirin (Verified Allergy, Unknown, 09/28/18) iodine (Verified Allergy, Unknown, 09/28/18) Uncoded Allergies: SEAFOOD (Allergy, Unknown, 09/28/18) Past Surgical History Past Surgical Hx: no surgical history Family History Significant Family History: no pertinent family hx Social History Alcohol Use: none Smoking Status: Never smoker Drug Use: none Exam/Review of Systems Exam Vitals Vital Signs Date Temp Pulse Resp B/P (MAP) Pulse Ox O2 O2 Flow FiO2 Time Delivery Rate 09/29/18 98.2 88 18 105/58 98 Room Air 08:24 (74) 09/29/18 05:45 Intake and Output 09/28/18 09/28/18 09/29/18 1515:00 23:00 07:00 IntakeIntake Total 75 ml BalanceBalance 75 ml Constitutional: alert, oriented Psych: no complaints Head: normocephalic ENMT: nl external ears & nose Neck: supple Respiratory: clear to auscultation Cardiovascular: regular rate and rhythm Gastrointestinal: soft Musculoskeletal: nl extremities to inspection Extremities: normal pulses Neurological: CONTENT ASSISTANT II-XII intact Results Result Diagram: 09/28/18205409/28/182120 Results 24hrs Laboratory Tests Test 1/24/19 20:55 09/28/18 21:12 09/28/18 21:21 09/28/18 21:50 White Blood Count 13.0 H Red Blood Count 3.71 L Hemoglobin 10.8 L Hematocrit 33.2 L Mean Corpuscular 89.5 Volume Mean Corpuscular 29.1 Hemoglobin Mean Corpuscular 32.5 Hemoglobin Concent Red Cell 12.5 Distribution Width Platelet Count 427 H Mean Platelet Volume 8.5 Immature 0.500 H Granulocytes % Neutrophils % 75.7 Lymphocytes % 15.4 Monocytes % 6.2 Eosinophils % 1.8 Basophils % 0.4 Nucleated Red Blood 0.0 Cells % Immature 0.060 H Granulocytes # Neutrophils # 9.9 H Lymphocytes # 2.0 Monocytes # 0.8 Eosinophils # 0.2 Basophils # 0.1 Nucleated Red Blood 0.0 Cells # Carcinoembryonic 1.2 Antigen CA 19-9 Antigen < 1.4 CA 125 Antigen 11.5 Sodium Level 133 L Potassium Level 4.5 Chloride Level 98 Carbon Dioxide Level 25 Anion Gap 10 Blood Urea Nitrogen 15 Creatinine 1.22 H Est Glomerular 54 L Filtrat Rate mL/min Glucose Level 121 Calcium Level 9.7 Total Bilirubin 0.0 L Direct Bilirubin 0.00 Indirect Bilirubin 0.0 Aspartate Amino 17 Transf (AST/SGOT) Alanine 13 Aminotransferase (AL T/SGPT) Alkaline Phosphatase 69 Troponin I < 0.012 Total Protein 6.8 Albumin 3.7 Globulin 3.10 Albumin/Globulin 1.19 Ratio Lipase 65 Urine Color YELLOW Urine Clarity CLEAR Urine pH 7.0 Urine Specific 1.009 [place] Urine Ketones TRACE A Urine Nitrite NEGATIVE Urine Bilirubin NEGATIVE Urine Urobilinogen NEGATIVE Urine Leukocyte NEGATIVE Esterase Urine Hemoglobin NEGATIVE Urine Glucose NEGATIVE Urine Total Protein NEGATIVE DEAN PATEL MD Sep 29, 2018 14:10
[2018-09-29] MEDS: HEPARIN 5,000 UNIT/1 ML VIAL SC SCH ×2 (14:31→22:40)
[2018-09-29 15:43] VITALS: BP 146/67; PULSE 80; RESP 18
--- NOTE | 2018-09-29 16:21 | PN ---
Date/Time of Note Date/Time of Note DATE: 09/29/18 TIME: 16:18 Assessment/Plan VTE Prophylaxis Risk score (from Ns)>0 risk: 3 SCD applied (from [facility]): No SCD contraindicated: other (no) Pharmacological prophylaxis: heparin Lines/Catheters IV Catheter Type (from [facility]): Peripheral IV Urinary Cath still in place: No Assessment/Plan Assessment/Plan This is a 63-year-old female being admitted to the [facility] floor for: # Soft tissue gastric/duodenal mass on CT - Noncontrast CT shows soft tissue density overlying pylorus. - Differential includes MALT lymphoma, gastric ulcer. - Will get MRCP. - Will resume clear liquids tonight and advance as tolerated. - EGD offered, patient refused. # Leukocytosis: Possibly reactive, patient is afebrile and does not of any source of infection at the current time. Continue to monitor closely # Acute versus acute on chronic kidney injury: - Patient has a creatinine of 1.2. Likely prerenal given patient's history of vomiting as well as poor appetite. Will hydrate the patient at the current time a normal saline. Will monitor urine function closely. Avoid nephrotoxic agents. # hyponatremia: Patient has a mild hyponatremia of 133, she has had poor p.o. intake and decreased fluid intake. Hydrate the patient at the current time monitor electrolytes. # diabetes mellitus: We will check hemoglobin A1c, hold home oral medications # hypertension: Patient appears to have an UMA inhibitor as well as an ARB, we will need to confirm whether patient is in fact taking both these medications. We will put the patient on as needed hydralazine at the current time. # DVT GI prophylaxis: SCDs, no GI prophylaxis indicated Result Diagram: 09/28/18205409/28/182120 Results 24hrs Laboratory Tests Test 09/28/18 20:55 09/28/18 21:12 09/28/18 21:21 09/28/18 21:50 White Blood Count 13.0 H Red Blood Count 3.71 L Hemoglobin 10.8 L Hematocrit 33.2 L Mean Corpuscular 89.5 Volume Mean Corpuscular 29.1 Hemoglobin Mean Corpuscular 32.5 Hemoglobin Concent Red Cell 12.5 Distribution Width Platelet Count 427 H Mean Platelet Volume 8.5 Immature 0.500 H Granulocytes % Neutrophils % 75.7 Lymphocytes % 15.4 Monocytes % 6.2 Eosinophils % 1.8 Basophils % 0.4 Nucleated Red Blood 0.0 Cells % Immature 0.060 H Granulocytes # Neutrophils # 9.9 H Lymphocytes # 2.0 Monocytes # 0.8 Eosinophils # 0.2 Basophils # 0.1 Nucleated Red Blood 0.0 Cells # Carcinoembryonic 1.2 Antigen CA 19-9 Antigen < 1.4 CA 125 Antigen 11.5 Sodium Level 133 L Potassium Level 4.5 Chloride Level 98 Carbon Dioxide Level 25 Anion Gap 10 Blood Urea Nitrogen 15 Creatinine 1.22 H Est Glomerular 54 L Filtrat Rate mL/min Glucose Level 121 Calcium Level 9.7 Total Bilirubin 0.0 L Direct Bilirubin 0.00 Indirect Bilirubin 0.0 Aspartate Amino 17 Transf (AST/SGOT) Alanine 13 Aminotransferase (AL T/SGPT) Alkaline Phosphatase 69 Troponin I < 0.012 Total Protein 6.8 Albumin 3.7 Globulin 3.10 Albumin/Globulin 1.19 Ratio Lipase 65 Urine Color YELLOW Urine Clarity CLEAR Urine pH 7.0 Urine Specific 1.009 [place] Urine Ketones TRACE A Urine Nitrite NEGATIVE Urine Bilirubin NEGATIVE Urine Urobilinogen NEGATIVE Urine Leukocyte NEGATIVE Esterase Urine Hemoglobin NEGATIVE Urine Glucose NEGATIVE Urine Total Protein NEGATIVE Subjective 24 Hr Interval Summary Free Text/Dictation No acute overnight events. The patient said her pain is improved, now with increased appetite. Exam/Review of Systems Exam Vitals Vital Signs Date Temp Pulse Resp B/P (MAP) Pulse Ox O2 O2 Flow FiO2 Time Delivery Rate 09/29/18 97.8 80 18 146/67 94 Room Air 15:43 (93) 09/29/18 21 05:45 Intake and Output 09/28/18 09/28/18 09/29/18 1515:00 23:00 07:00 IntakeIntake Total 75 ml BalanceBalance 75 ml Exam General: Patient is a pleasant woman currently lying in bed in no acute distress HEENT: Atraumatic, normocephalic. The pupils are equal, round and reactive. Extraocular motor are intact Neck: Supple with full range of motion. No rigidity or meningismus Chest: Nontender Lungs: Clear to auscultation bilaterally no crackles rales or wheezing Heart: Normal S1-S2, Regular rhythm and rate. Abdomen: Obese, soft, nontender to palpation, hypoactive bowel sounds, no CVA tenderness palpation bilaterally Extremities: Normal to inspection, no edema no cyanosis Results Results 24hrs Laboratory Tests Test 09/28/18 20:55 09/28/18 21:12 09/28/18 21:21 09/28/18 21:50 White Blood Count 13.0 H Red Blood Count 3.71 L Hemoglobin 10.8 L Hematocrit 33.2 L Mean Corpuscular 89.5 Volume Mean Corpuscular 29.1 Hemoglobin Mean Corpuscular 32.5 Hemoglobin Concent Red Cell 12.5 Distribution Width Platelet Count 427 H Mean Platelet Volume 8.5 Immature 0.500 H Granulocytes % Neutrophils % 75.7 Lymphocytes % 15.4 Monocytes % 6.2 Eosinophils % 1.8 Basophils % 0.4 Nucleated Red Blood 0.0 Cells % Immature 0.060 H Granulocytes # Neutrophils # 9.9 H Lymphocytes # 2.0 Monocytes # 0.8 Eosinophils # 0.2 Basophils # 0.1 Nucleated Red Blood 0.0 Cells # Carcinoembryonic 1.2 Antigen CA 19-9 Antigen < 1.4 CA 125 Antigen 11.5 Sodium Level 133 L Potassium Level 4.5 Chloride Level 98 Carbon Dioxide Level 25 Anion Gap 10 Blood Urea Nitrogen 15 Creatinine 1.22 H Est Glomerular 54 L Filtrat Rate mL/min Glucose Level 121 Calcium Level 9.7 Total Bilirubin 0.0 L Direct Bilirubin 0.00 Indirect Bilirubin 0.0 Aspartate Amino 17 Transf (AST/SGOT) Alanine 13 Aminotransferase (AL T/SGPT) Alkaline Phosphatase 69 Troponin I < 0.012 Total Protein 6.8 Albumin 3.7 Globulin 3.10 Albumin/Globulin 1.19 Ratio Lipase 65 Urine Color YELLOW Urine Clarity CLEAR Urine pH 7.0 Urine Specific 1.009 [place] Urine Ketones TRACE A Urine Nitrite NEGATIVE Urine Bilirubin NEGATIVE Urine Urobilinogen NEGATIVE Urine Leukocyte NEGATIVE Esterase Urine Hemoglobin NEGATIVE Urine Glucose NEGATIVE Urine Total Protein NEGATIVE Medications Medication Current Medications Sodium Chloride 1,000 ml @ 75 mls/hr [id number] IV Last administered on 09/29/18at 04:03; Admin Dose 75 MLS/HR; Start 09/29/18 at 00:41 IV Flush (NS 3 ml) 3 ml PER PROTOCOL IV ; Start 09/29/18 at 01:00 Ondansetron HCl (Zofran Inj) 4 mg Q6H PRN IV NAUSEA/VOMITING; Start 09/29/18 at 01:00 Acetaminophen (Tylenol Tab) 650 mg Q6H PRN PO .PAIN 1-3 OR TEMP; Start 09/29/18 at 01:00 Morphine Sulfate (morphine) 2 mg Q4H PRN IV .SEVERE PAIN 7-10 Last administered on 09/29/18at 01:22; Admin Dose 2 MG; Start 09/29/18 at 01:00 Docusate Sodium (Colace) 100 mg Q12H PRN PO .CONSTIPATION; Start 09/29/18 at 01:00 Bisacodyl (Dulcolax) 5 mg DAILY PRN PO .CONSTIPATION; Start 09/29/18 at 01:00 Albuterol (Proventil 0.083% (Neb)) 2.5 mg TID RESP THERAPY PRN NEB WHEEZING AND SOB; Start 09/29/18 at 04:00 Cyclobenzaprine HCl (Flexeril) 5 mg DAILY PO Last administered on 09/29/18at 09:24; Admin Dose 5 MG; Start 09/29/18 at 09:00 Albuterol/ Ipratropium (Duoneb) 3 ml Q6H RESP THERAPY PRN INH SHORTNESS OF BREATH Last administered on 09/29/18at 05:44; Admin Dose 3 ML; Start 09/29/18 at 04:00 Montelukast Sodium (Singulair) 10 mg QHS PO ; Start 09/29/18 at 21:00 Patient Own Medication 1 INHALATION BID RESP THERAPY XX Last administered on 09/29/18 09:19; Admin Dose 1 EA; Start 09/29/18 at 09:00 Heparin Sodium (Porcine) (Heparin (5000 Units/1ml)) 5,000 unit Q8 SC Last administered on 09/29/18at 14:31; Admin Dose 5,000 UNIT; Start 09/29/18 at 14:00 MARTIN CHRISTOPHER MD Sep 29, 2018 16:21
--- NOTE | 2018-09-29 19:22 | NUR ---
EOSS: Vitals remain stable. Pt resting in bed with family at bedside. Complaining of back pain, morphine out of stock on floor, pharmacy was contacted for medication, they reported it will be delivered soon. Pt spoke w/ Dr. York regarding imaging and pt has stated that she would prefer to have an MRI rather than an EGD. Pt was upgraded to clear liquids and tolerated well. Awaiting bowel movement so stool can be collected for H. pylori test. Call light within reach. Bed alarm on. SCDs on.
[2018-09-29 20:30] VITALS: BP 160/76; PULSE 92; RESP 18
[2018-09-29] MEDS ORDERED: morphine 4 MG/ML VIAL IV PRN (21:00)
[2018-09-29] MEDS ORDERED: MONTELUKAST 10 MG TAB PO SCH (21:00)
--- NOTE | 2018-09-29 21:45 | NUR ---
MRI staff informed 4W staff MRI procedure for patient would most likely be done sometime around midnight, patient made aware of it. Test initially scheduled for 2129 but changes occurred. Patient verbalized understanding. MRI questionnaire already completed by outgoing day RN from previous shift.
--- NOTE | 2018-09-30 02:00 | NUR ---
Dr. Sims notified of patient's request to speak to a doctor, unhappy that MRI procedure has been rescheduled numerous times today. Verbalized since she was in the ED she was told by a physician in the ED of an expectation MRI would be done the same am. And that if she only knew of the delays that occurred she could have gone home instead and did it out-patient. When Dr. Sims spoke to her over the phone, physician informed RN patient stated she was asleep and was willing to wait for later this am to have the test done. Night RN instructed to involve cupola charger insulation and incoming dayshift RN to coordinate with MRI staff if possible to get it done first thing in am. No changes/modification made to already ordered routine MRI test. material distributor made aware.
[2018-09-30 02:27] VITALS: BP 130/66; PULSE 89; RESP 18
--- NOTE | 2018-09-30 05:34 | QN ---
Documentation Comment No significant change Awaiting MRI DEAN PATEL MD Sep 30, 2018 05:34
[2018-09-30] MEDS: SOD CHLORIDE 0.9% 1,000 ML IV SCH (05:45)
[2018-09-30] MEDS: HEPARIN 5,000 UNIT/1 ML VIAL SC SCH (05:48)
--- NOTE | 2018-09-30 05:58 | NUR ---
RN EOSS NOTES: Patient appreciative of nursing care this admission, particularly being moved to a private room from a semi-private room from admission. Asleep now on bed, easily awakened-denies having any pain at this time and only medicated once this shift with requested IV Morphine with good relief. Anticipating MRI test to be done today. Will endorse to day RN to make this a priority in coordinating completion of this ordered test. As per night recharger, nursing railroad track repair supervisor made aware and incoming day charge will also be asked to intervene.
[2018-09-30 07:02] VITALS: BP 139/69; PULSE 92; RESP 18
--- NOTE | 2018-09-30 07:21 | NUR ---
Patient verified she has not had anything to drink by mouth since midnight. Currently on IV fluid NS @75cc/hour. Info endorsed to primary day RN.
--- NOTE | 2018-09-30 09:15 | NUR ---
ACTIVITY PT OOB, AMBULATING IN HALLWAY. FOUND PATIENT EXERCISING IN ROOM, BENDING OVER AND STRETCHING. DENIES PAIN, SOB OR DISCOMFORT AT THIS TIME. PER RADIOLOGY, PT TO HAVE MRI TODAY AT 1130, NO NEED FOR NPO STATUS SINCE PT ON CLEAR LIQUIDS. Addendum: 09/30/18 at 1152 by CA VINCENT RN Amended: Links added.
[2018-09-30] MEDS: ARNUITY ELLIPTA XX SCH (09:41)
[2018-09-30] MEDS: CYCLOBENZAPRINE 10 MG TAB PO SCH (09:41)
--- NOTE | 2018-09-30 10:42 | PDOCDIS ---
Discharge Instructions DIAGNOSIS Discharge Diagnosis Lower back pain CONDITION [id number] Patient Condition: [id number] Good HOME CARE INSTRUCTIONS: [id number] Diet Instructions: [id number] Regular ACTIVITY: [id number] Activity Restrictions: [id number] No Restrictions FOLLOW UP/APPOINTMENTS Follow-up Plan 1. See your primary care doctor in 1-2 weeks. 2. You should get an outpatient MRI of your abdomen to evaluate a soft tissue mass overlying your pancreas which was seen on CT here. 3. Return to the emergency room if you develop worsening vomiting and cannot keep down foods or liquids. MARTIN CHRISTOPHER MD Sep 30, 2018 10:42
--- NOTE | 2018-09-30 12:30 | NUR ---
DIET PER MD, DIET ADVANCED TO REGULAR. PT REFUSING TO WAIT UNTIL LUNCH TRAYS ARRIVE. PROVIDED WITH HARD BOILED EGG, AND APPLE SAUCE. PT TOLERATING DIET AT THIS TIME. DENIES N/V OR ANY OTHER DISCOMFORT.
--- NOTE | 2018-09-30 12:52 | NUR ---
DISCHARGE PT TO BE DC'D HOME TODAY. PER MD ORDERS, MRI CANCELLED. PT TO HAVE OUT PT MRI AND TO F/U OUTPATIENT WITH PCP. IV HL DC'D. PT WITH AND DAUGHTER AT BEDSIDE, DC INSTRUCTIONS PROVIDED, ALL QUESTIONS ANSWERED. NO CHANGE IN CONDITION AT THIS TIME. OFF UNIT VIA WHEELCHAIR ESCORTED BY VOLUNTEER, WITH RX AND BELONGINGS ON HAND.
--- NOTE | 2018-09-30 16:10 | DS ---
Date/Time of Note Date/Time of Note DATE: 09/30/18 TIME: 16:08 Discharge Summary Admission/Discharge Info Admit Date/Time Sep 29, 2018 at 00:28 Discharge Date/Time Sep 30, 2018 at 13:00 Discharge Diagnosis Lower back pain Patient Condition: Good Consults Gastroenterology General surgery Hx of Present Illness Chief complaint: Abdominal pain times 1 week, vomiting since yesterday This is a 63-year-old female who complains of feeling bad for 7 days. SHe has diffuse upper and lower back pain with loss of appetite and has not been eating much or drinking much. Denies cough denies dysuria. She also complains of diffuse mild abdominal pain off and on. She has vomited once that was nonbilious and nonbloody. She has had decreased appetite and because of that she has not had a bowel movement in the last 3 days. She has general malaise and weakness. She denies any weight loss. Allergies: Penicillin, seafood, aspirin, iodine, bees, wasps Medications: See [facility] Hospital Course Soon after admission the patient's abdominal pain and back pain resolved. She was up ambulating with no problems, tolerating clear liquid diet. A CT abdomen noncontrast was done which showed "marked abnormal appearance of the pylorus of the stomach and proximal duodenum overlying soft tissue density. There is a focal air-fluid level measuring 3.1 cm in this location, which may represent ulceration or diverticulum. Underlying malignancy is not excluded." An MRCP was ordered to further evaluate but this study was very delayed. The patient requested discharge with plan to do this MRI as outpatient. The patient was up, ambulating, tolerating regular diet, not requiring any analgesia. Home Meds Reported Medications Meloxicam* (Mobic*) 15 Mg Tablet, 15 MG PO DAILY, #30 TAB 09/28/18 Cyclobenzaprine Hcl* (Cyclobenzaprine Hcl*) 5 Mg Tablet, 5 MG PO DAILY, #60 TAB 09/28/18 Lisinopril* (Lisinopril*) 10 Mg Tablet, 10 MG PO DAILY, #30 TAB 09/28/18 Metformin Hcl* (Metformin Hcl*) 500 Mg Tablet, 500 MG PO WITH BREAKFAST DINNE, #60 TAB 09/28/18 Losartan Potassium* (Losartan Potassium*) 100 Mg Tablet, 100 MG PO DAILY, TAB 09/28/18 Montelukast Sodium* (Montelukast Sodium*) 10 Mg Tablet, 10 MG PO QHS, #30 TAB 09/28/18 Ipratropium-Albuterol (Ipratropium-Albuterol) 0.5-3 Mg/3 Ml Ampul.neb, 3 ML INHALATION Q6, #30 VIAL 09/28/18 Albuterol Sulfate* (Albuterol Sulfate* Neb) 0.083%-3 Ml Neb, 2.5 MG NEB TID PRN for WHEEZING AND SOB, #30 VIAL 09/28/18 Fluticasone Furoate (Arnuity Ellipta) 200 Mcg Blst.w.dev, 200 MCG INHALATION BID, #1 INHALER 09/28/18 Albuterol Sulfate (Proair Respiclick) 90 Mcg Aer.pow.ba, 2 PUFFS INHALATION QID, BOTTLE 09/28/18 Follow-up Plan 1. See your primary care doctor in 1-2 weeks. 2. You should get an outpatient MRI of your abdomen to evaluate a soft tissue mass overlying your pancreas which was seen on CT here. 3. Return to the emergency room if you develop worsening vomiting and cannot keep down foods or liquids. Primary Care Provider Not On Staff Doctor Time spent on discharge: > 30 minutes Pending Labs Laboratory Tests Test 09/30/18 04:54 White Blood Count 7.0 10^3/ul (4.8-10.8) Red Blood Count 3.21 10^6/ul (4.20-5.40) Hemoglobin 9.3 g/dl (12.0-16.0) Hematocrit 29.5 % (37.0-47.0) Mean Corpuscular Volume 91.9 fl (82.0-101.0) Mean Corpuscular Hemoglobin 29.0 pg (29.0-33.0) Mean Corpuscular Hemoglobin Concent 31.5 g/dl (32.0-37.0) Red Cell Distribution Width 13.0 % (11.5-14.5) Platelet Count 357 10^3/UL (140-415) Mean Platelet Volume 8.4 fl (7.4-10.4) Immature Granulocytes % 0.600 % (0.001-0.429) Neutrophils % 54.5 % (39.0-77.0) Lymphocytes % 31.3 % (15.0-51.0) Monocytes % 7.6 % (0.0-11.0) Eosinophils % 5.4 % (0.0-7.0) Basophils % 0.6 % (0.0-2.0) Nucleated Red Blood Cells % 0.0 /100WBC (0.0-0.0) Immature Granulocytes # 0.040 10^3/ul (0.0-0.031) Neutrophils # 3.8 10^3/ul (1.6-7.5) Lymphocytes # 2.2 10^3/ul (0.8-2.9) Monocytes # 0.5 10^3/ul (0.3-0.9) Eosinophils # 0.4 10^3/ul (0.0-0.5) Basophils # 0.0 10^3/ul (0.0-0.1) Nucleated Red Blood Cells # 0.0 10^3/ul (0.0-0.0) Sodium Level 139 mmol/L (135-144) Potassium Level 4.5 mmol/L (3.5-5.1) Chloride Level 104 mmol/L (97-110) Carbon Dioxide Level 24 mmol/L (21-31) Anion Gap 11 (5-13) Blood Urea Nitrogen 11 mg/dl (7-20) Creatinine 1.19 mg/dl (0.44-1.00) Est Glomerular Filtrat Rate mL/min 55 mL/min (>60) Glucose Level 81 mg/dl (70-220) Hemoglobin A1c 5.9 % (0-5.9) Calcium Level 8.9 mg/dl (8.4-10.2) Magnesium Level 2.1 mg/dl (1.7-2.5) Total Bilirubin 0.0 mg/dl (0.2-1.3) Direct Bilirubin 0.00 mg/dl (0.00-0.20) Indirect Bilirubin 0.0 mg/dl (0-1.1) Aspartate Amino Transf (AST/SGOT) 14 IU/L (15-46) Alanine Aminotransferase (ALT/SGPT) 19 IU/L (13-69) Alkaline Phosphatase 55 IU/L (42-121) Total Protein 6.1 g/dl (6.1-8.1) Albumin 3.1 g/dl (3.3-4.9) Globulin 3.00 g/dl (1.3-3.2) Albumin/Globulin Ratio 1.03 Triglycerides Level 113 mg/dl (0-149) Cholesterol Level 168 mg/dl (100-200) LDL Cholesterol, Calculated 112 mg/dl HDL Cholesterol 33 mg/dl (35-98) Cholesterol/HDL Ratio 5.0 RATIO Thyroid Stimulating Hormone (TSH) 0.926 MIU/L (0.465-4.680) MARTIN CHRISTOPHER MD Sep 30, 2018 16:10
== END 2018-09-30 13:00 | disposition home or self-care (01) | DRG 552 ==
LOC: E/R 18:37 → MS1 09-29 00:28
PROVIDERS: ADMIT Family Medicine; ATTEND Internal Medicine
DX: M54.5 Low back pain (principal); K31.1 Adult hypertrophic pyloric stenosis; N17.9 Acute kidney failure, unspecified; E87.1 Hypo-osmolality and hyponatremia; R14.0 Abdominal distension (gaseous); R19.09 Other intra-abdominal and pelvic swelling, mass and lump; D49.0 Neoplasm of unspecified behavior of digestive system; R59.1 Generalized enlarged lymph nodes; Z91.041 Radiographic dye allergy status; D72.829 Elevated white blood cell count, unspecified; I12.9 Hypertensive chronic kidney disease with stage 1 through stage 4 chronic kidney disease, or unspecified chronic kidney disease; N18.9 Chronic kidney disease, unspecified; E11.9 Type 2 diabetes mellitus without complications
CPT/HCPCS: 36415; 71045; 74176; 76705; 80053; 80061; 81003; 82378; 83036; 83690; 83735; 84443; 84484; 85025; 86300; 86301; 86304; 93005; 94640; 96374; 96375; J1644; J2270; J2405; J7030; Q9967